=== PATIENT | male | born 1975 | race Two or more races ===

== ENCOUNTER → 2023-08-20 06:36 | Day surgery (SDC) | payer BC, SELFPAY | LOC: GI 06:36 | PROVIDERS: ATTENDING PHYSICIAN Internal Medicine Gastroenterology | DX: Z12.11 Encounter for screening for malignant neoplasm of colon (principal); D12.0 Benign neoplasm of cecum | CPT/HCPCS: 45380; 88305 ==

== ENCOUNTER → 2023-10-06 07:07 | Outpatient (REF) | payer BC, SELFPAY | LOC: HWRAD 07:07 | PROVIDERS: ATTENDING PHYSICIAN Family Medicine | DX: E03.9 Hypothyroidism, unspecified (principal) | CPT/HCPCS: 76536 ==

== ENCOUNTER → 2024-11-20 11:23 | Outpatient (REF) | payer BC, SELFPAY | LOC: HWRAD 11:23 | DX: M25.572 Pain in left ankle and joints of left foot (principal) | CPT/HCPCS: 73610 ==